=== PATIENT | female | born 1945 | race Caucasian/White ===

== ENCOUNTER 2017-07-04 07:45 | Emergency (ER) | payer MEDICARE, BC ==
[~2017-07-04] VITALS: Ht 165.1 cm; Wt 58.7 kg
[~2017-07-04 07:45] MED LIST: BENZ100 PO; HYCOS PO; ZITH250T PO
[2017-07-04 08:06] VITALS: BP 178/92; PULSE 67; RESP 18; TEMP 97.5; O2SAT 95
--- NOTE | 2017-07-04 08:39 | PD ---
HPI Chief Complaint: GI Complaint Time Seen by Provider: 08:25 Travel History International Travel<30 days: No Contact w/Intl Traveler<30days: No Traveled to known affect area: No History of Present Illness HPI 71 y/o female presents with about 3 episodes per day for the past 2 weeks of nonbloody diarrhea. She states she has about 2 in the morning and one in the afternoon but given her symptoms were not going away and she is here on vacation for about another week she wanted to get checked out. She denies any abdominal pain, vomiting, fever or other concurrent complaints. Quality is nonbloody. Severity is about 3 episodes per day. PFSH Past Medical History Narrative Medical hypertension Endocrine: Yes (thyroid) ?: Not Menopausal: Yes Past Surgical History Tonsillectomy: Yes Social History Alcohol Use: No Tobacco Use: No Substance Use: No Allergies-Medications (Allergen,Severity, Reaction): Coded Allergies: aspirin (Unverified Allergy, Mild, Itching, 07/04/17) Reported Meds & Prescriptions Reported Meds & Active Scripts Active Reported Metoprolol Tartrate 25 Mg Tab 25 Mg PO DAILY Review of Systems Except as stated in HPI: all other systems reviewed are Neg Physical Exam Narrative GENERAL: Well-nourished, well-developed patient. Well-appearing SKIN: Warm and dry. HEAD: Normocephalic and atraumatic. EYES: No injection or drainage. ENT: No nasal drainage noted. NECK: Supple, trachea midline. CARDIOVASCULAR: Regular rate and rhythm RESPIRATORY: no increased effort. No accessory muscle use. GASTROINTESTINAL: Abdomen soft, non-tender, nondistended. EXTREMITIES: No edema. NEUROLOGICAL: Awake and alert. Motor and sensory grossly within normal limits. Normal speech Data Data Last Documented VS Vital Signs Date Time Temp Pulse Resp B/P (MAP) Pulse Ox O2 Delivery O2 Flow Rate FiO2 07/04/17 08:06 97.5 67 18 178/92 (120) 95 Orders Orders Magnesium (Mg) (07/04/17 08:33) Complete Blood Count With Diff (07/04/17 08:33) Basic Metabolic Panel (Bmp) (07/04/17 08:33) Iv Access Insert/Monitor (07/04/17 08:33) Ecg Monitoring (07/04/17 08:33) Ed Discharge Order (07/04/17 09:13) Labs Laboratory Tests Test 07/04/17 08:40 White Blood Count 5.5 TH/MM3 Red Blood Count 5.09 MIL/MM3 Hemoglobin 14.7 GM/DL Hematocrit 44.8 % Mean Corpuscular Volume 88.1 FL Mean Corpuscular Hemoglobin 28.9 PG Mean Corpuscular Hemoglobin Concent 32.8 % Red Cell Distribution Width 12.7 % Platelet Count 229 TH/MM3 Mean Platelet Volume 7.3 FL Neutrophils (%) (Auto) 62.8 % Lymphocytes (%) (Auto) 25.4 % Monocytes (%) (Auto) 8.2 % Eosinophils (%) (Auto) 2.4 % Basophils (%) (Auto) 1.2 % Neutrophils # (Auto) 3.4 TH/MM3 Lymphocytes # (Auto) 1.4 TH/MM3 Monocytes # (Auto) 0.5 TH/MM3 Eosinophils # (Auto) 0.1 TH/MM3 Basophils # (Auto) 0.1 TH/MM3 CBC Comment DIFF FINAL Differential Comment Blood Urea Nitrogen 16 MG/DL Creatinine 0.61 MG/DL Random Glucose 92 MG/DL Calcium Level 9.5 MG/DL Magnesium Level 2.3 MG/DL Sodium Level 141 MEQ/L Potassium Level 4.3 MEQ/L Chloride Level 106 MEQ/L Carbon Dioxide Level 28.4 MEQ/L Anion Gap 7 MEQ/L Estimat Glomerular Filtration Rate 97 ML/MIN [facility] Medical Decision Making Medical Screen Exam Complete: Yes Emergency Medical Condition: Yes Medical Record Reviewed: Yes (past history confirmed) Interpretation(s) CBC & BMP Diagram 07/04/17 08:40 Calcium Level 9.5, Magnesium Level 2.3 Differential Diagnosis Irritable bowel disease, Colitis, electrolyte abnormality, renal failure Narrative Course Will check blood work and reevaluate. Labs are within normal limits, no diarrhea here, Patient denies any new complaints, all questions answered. Patient knows that follow up is incumbent on them and to return to the emergency room immediately if new or worsening symptoms develop. Patient given strict return precautions, vitals reviewed and are normal, agrees to further workup as an outpatient with possible stool studies if persist. Diagnosis Primary Impression: Diarrhea Qualified Codes: R19.7 - Diarrhea, unspecified Patient Instructions: General Instructions Additional Instructions: return as needed, follow with primary this week, keep hydrated Med/Other Pt SpecificInfo: No Change to Meds Disposition: 01 DISCHARGE HOME Condition: Stable Courtney Gomez MD Jul 04, 2017 08:39
[2017-07-04] MEDS ORDERED: METO25TA3 PO (08:44)
[2017-07-04 08:47] LABS: AUTOMATED NEUTROPHIL # 3.4 TH/MM3 (1.8-7.7); BASOPHIL # 0.1 TH/MM3 (0-0.2); BASOPHIL % 1.2 % (0.0-2.0); EOSINOPHIL # 0.1 TH/MM3 (0-0.4); EOSINOPHIL % 2.4 % (0.0-4.0); HEMATOCRIT 44.8 % (35.0-46.0); HEMO FLAGS DIFF FINAL; LYMPH % 25.4 % (9.0-44.0); LYMPHOCYTE # 1.4 TH/MM3 (1.0-4.8); MEAN CELL VOLUME 88.1 FL (80.0-100.0); MEAN CORPUSCULAR HEMOGLOBIN 28.9 PG (27.0-34.0); MEAN CORPUSCULAR HGB CONC 32.8 % (32.0-36.0); MONO % 8.2 % (0.0-8.0); NEUT % 62.8 % (16.0-70.0); PLATELET COUNT 229 TH/MM3 (150-450); RED BLOOD COUNT 5.09 MIL/MM3 (4.00-5.30); RED CELL DISTRIBUTION WIDTH 12.7 % (11.6-17.2); WHITE BLOOD COUNT 5.5 TH/MM3 (4.0-11.0)
[2017-07-04 08:57] LABS: POTASSIUM 4.3 MEQ/L (3.5-5.1)
[2017-07-04 09:00] LABS: BICARBONATE 28.4 MEQ/L (21.0-32.0); MAGNESIUM 2.3 MG/DL (1.5-2.5)
== END 2017-07-04 09:37 | disposition home or self-care (01) ==
LOC: PHED 07:45
DX: R19.7 Diarrhea, unspecified (principal); I10 Essential (primary) hypertension
CPT/HCPCS: 80048; 83735; 85025; 99283